=== PATIENT | female | born 1950 | race Caucasian/White ===

== ENCOUNTER → 2021-07-04 | Outpatient (CLI) | payer MEDICARE, OTHER ==
[~2021-07-04] MED LIST: AZIT250 PO; CAND16 PO; ESTR1 PO; LORA10ER PO; NAPR220 PO; OSTEOBIFLEX; ZAFI20 PO
== END | disposition home or self-care (01) ==
LOC: LAB SHORT 07:50 → PLD 07:50
DX: L82.1 Other seborrheic keratosis (principal)
CPT/HCPCS: 88305